=== PATIENT | female | born 1960 | race Two or more races ===

== ENCOUNTER 2020-11-06 20:20 | Emergency (ER) | payer SELFPAY ==
[~2020-11-06] VITALS: Ht 144.8 cm; Wt 55.8 kg
--- NOTE | 2020-11-06 20:49 | NUR ---
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
[2020-11-06 21:00] LABS: ALANINE AMINOTRANSFERASE 28 U/L (12-78); ALBUMIN 3.6 g/dL (3.4-5.0); ANION GAP 6 mmol/L (5-15); CALCIUM 8.6 mg/dL (8.5-10.1); CHLORIDE 112 mmol/L (98-107); CREATININE 0.69 mg/dL (0.55-1.02)
[2020-11-06] MEDS ORDERED: OMNIPAQUE 350 MG/ML, 100ML BOTTLE ONE (21:00)
[2020-11-06 21:01] LABS: BASOPHILS % (AUTO) 1 % (0-1); EOSINOPHILS % (AUTO) 2 % (1-7); LYMPHOCYTES % (AUTO) 36 % (22-44); MEAN CORPUSCULAR HEMOGLOBIN 27.3 pg (27.0-34.8); MEAN CORPUSCULAR HGB CONC 32.6 g/dL (32.4-35.8); MEAN PLATELET VOLUME 9.3 fL (7.4-10.4); MONOCYTES % (AUTO) 6 % (2-9); NEUTROPHILS % (AUTO) 55 % (42-75); PLATELET COUNT 224 x10^3/uL (130-400); RED BLOOD COUNT 4.88 x10^6/uL (3.82-5.3); RED CELL DISTRIBUTION WIDTH 15.2 % (9.6-15.2)
[2020-11-06 21:02] LABS: ALKALINE PHOSPHATASE 112 U/L (45-117); BILIRUBIN,TOTAL 0.2 mg/dL (0.2-1.0)
[2020-11-06 21:03] LABS: MD NO
--- NOTE | 2020-11-06 21:26 | NUR ---
PT AMBULATED TO RESTROOM WITH STEADY GAIT TO PROVIDE URINE SAMPLE. UA COLLECTED AND SENT TO LAB. PT BACK FROM [place].
--- NOTE | 2020-11-06 21:28 | NUR ---
PT WAS UNABLE TO PROVIDE STOOL SAMPLE AT THIS TIME.
--- NOTE | 2020-11-06 21:56 | NUR ---
PT GOING TO XRAY
[2020-11-06 22:07] LABS: MICROSCOPIC NOT IND
--- NOTE | 2020-11-06 22:42 | NUR ---
PROVIDER AT BEDSIDE TO UPDATE PT ON POC.
[2020-11-06 22:48] VITALS: BP 112/59
[2020-11-09 10:39] LABS: QUANTIFERON TB Ag1-NIL 8.71 (0.000-0.000)
== END 2020-11-06 22:57 | disposition home or self-care (01) ==
LOC: ED 22:51
DX: G89.29 Other chronic pain (principal); R10.31 Right lower quadrant pain; R19.7 Diarrhea, unspecified; R10.13 Epigastric pain
CPT/HCPCS: 36415; 71046; 74177; 80053; 81003; 85025; 86480; 93005; 99285; Q9967